=== PATIENT | male | born 1955 ===

== ENCOUNTER 2018-01-04 11:49 | Emergency (ER) | payer OTHER ==
[2018-01-04 11:54] VITALS: RESP 18
[2018-01-04] MEDS ORDERED: Bacitracin 500 Units/gm Oint Foilpak UD TOP STA (12:24)
[2018-01-04] MEDS ORDERED: Tdap Vaccine 0.5 ml Vial (10-64 yrs) IM ONE ×2 (12:24→12:30)
[2018-01-04] MEDS ORDERED: Lidocaine 1% Inj (20ml) IJ ONE (12:24)
[2018-01-04] MEDS ORDERED: Povidone Iodine Oint 10% Foilpak UD ONE (12:31)
[2018-01-04] MEDS ORDERED: Lidocaine 1% Inj (20ml) ONE (12:31)
--- NOTE | 2018-01-04 12:37 | ED PDOC ---
Upper Extremity Pain/Injury Time Seen by Provider: 01/04/18 12:13 Chief Complaint (Nursing): Upper Extremity Problem/Injury Chief Complaint (Provider): Upper Extremity Problem/Injury History Per: Patient History/Exam Limitations: no limitations Onset/Duration Of Symptoms: Days (3) Additional Complaint(s): Patient is a 62 y/o male with no significant medical history who presents to ED for evaluation of right 3rd digit pain and swelling, onset x3 days ago. Patient reports symptoms started after sustaining a little cut while at work and has progressively worsened. Patient has been taking ibuprofen for pain but denies taking any medication today. Patient is right hand dominant. Denies fever, chills, or drainage from wound. PMD: None Past Medical History Reviewed: Historical Data, Nursing Documentation, Vital Signs Vital Signs: Last Vital Signs Temp 97.4 F L 01/04/18 12:01 Pulse 62 01/04/18 12:01 Resp 18 01/04/18 12:01 BP 112/68 01/04/18 12:01 Pulse Ox 99 01/04/18 12:01 - Medical History PMH: No Chronic Diseases - Surgical History Surgical History: No Surg Hx - Family History Family History: States: Unknown Family Hx - Immunization History Hx Tetanus Toxoid Vaccination: No (cannot recall last tetanus) - Home Medications Home Medications: Ambulatory Orders Medication Instructions Recorded Polyethylene Glycol 3350 [Miralax] 17 gm PO DAILY PRN #100 ml 03/27/17 Tamsulosin [Flomax] 0.4 mg PO DAILY #20 cap 03/27/17 Naproxen [Naprosyn] 500 mg PO BID PRN #16 tab 04/10/17 Phenazopyridine HCl [Pyridium] 200 mg PO TID PRN #12 tablet 04/10/17 Polyethylene Glycol 3350 [Miralax] 17 gm PO DAILY PRN #10 packet 04/10/17 Sulfamethoxazole/Trimethoprim 1 tab PO BID #14 tab 04/10/17 [Bactrim DS 800 mg-160 mg] Cephalexin [Keflex] 500 mg PO TID #21 capsule 01/04/18 RX: Bacitracin Ointment 1 applic TOP BID #1 tube 01/04/18 [Bacitracin] RX: Ibuprofen [Motrin Tab] 600 mg PO Q6 PRN #20 tab 01/04/18 - Allergies Allergies/Adverse Reactions: Allergies Allergy/AdvReac Type Severity Reaction Status Date / Time No Known Allergies Allergy Verified 04/10/17 08:37 Review of Systems ROS Statement: Except As Marked, All Systems Reviewed And Found Negative Constitutional: Negative for: Fever, Chills Musculoskeletal: Positive for: Hand Pain (right 3rd digit) Physical Exam - Reviewed Nursing Documentation Reviewed: Yes Vital Signs Reviewed: Yes - Physical Exam Comments: GENERAL APPEARANCE: Patient is awake, alert, oriented x 3, in no acute distress. SKIN: Warm, dry; (-) cyanosis. NECK: Supple, FROM CHEST AND RESPIRATORY: (-) rales, (-) rhonchi, (-) wheezes; breath sounds equal bilaterally. HEART AND CARDIOVASCULAR: (-) irregularity RIGHT HAND: radial and proximal aspect of 3rd right nail margin (+)paronychia with localized tenderness, erythema and fluctuance. (-)evidence of felon (-) active pus draining, (-) bleeding; Full ROM all digits and hand/wrist; sensation and capillary refill intact. Remainder of upper extremity: (-) tenderness, full ROM. NEURO AND PSYCH: Mental status as above. Gait: steady. Speech: clear. (-) facial asymmetry - ECG O2 Sat by Pulse Oximetry: 99 (RA) Pulse Ox Interpretation: Normal Medical Decision Making Medical Decision Making: Time: 12:30 Impression: Paronychia Initial Plan: Tetanus IM Bacitracin TOP Lidocaine INJ Keflex PO 1315 Paronychia drained of purulent material by Chalino PATTERSON by I&D. See procedure note for details. 1440 Bacitracin and bandaid applied to wound s/p saline soak. NV intact after procedure. On re-evaluation, patient reports improvement of symptoms. On exam, patient remains AAOx3, in no acute distress. Lungs clear to auscultation, cardiac RRR, repeat neuro exam shows no focal findings. Educated on wound care. Lab/Diagnostic results d/w the patient in great detail. Diagnosis of paronychia, acute finger pain and swelling d/w the patient. Based on history, exam and diagnostic results, plan will be for outpatient f ollow up. Patient instructed to follow-up with pmd / referral provided / the clinic in 1- 2 days without fail. Advised to take medication as prescribed. Return to the emergency room at any time for any new or worsening symptoms. Patient states he fully agrees with and understands discharge instructions. States that he agrees with the plan and disposition. Verbalized and repeated discharge instructions and plan. I have given the patient opportunity to ask any additional questions. Scribe Attestation: Documented by Olu Denis, acting as a scribe for Dorinda Allred PA-C Provider Scribe Attestation: All medical record entries made by the Scribe were at my direction and personally dictated by me. I have reviewed the chart and agree that the record accurately reflects my personal performance of the history, physical exam, medical decision making, and the department course for this patient. I have also personally directed, reviewed, and agree with the discharge instructions and disposition. Procedures - Incision and Drainage Site: right 3rd digit- paronychia Blade Size: 15 blade I & D Procedure: betadine prep Progress: 1mL lidocaine inj to radial aspect of right 3rd nail margin. A .5cm incision made just lateral to nail margin with immediate return of purulent material. Wound evacuated of pus. Finger soaked in saline. Bacitracin and band-aid applied. Patient tolerated procedure well. Educated on wound care. Disposition - Clinical Impression Clinical Impression: Paronychia of finger of right hand - Patient ED Disposition Is Patient to be Admitted: No Counseled Patient/Family Regarding: Studies Performed, Diagnosis, Need For Followup, Rx Given - Disposition Referrals: [facility] [Outside] Disposition: Routine/Home Disposition Time: 14:45 Condition: STABLE Additional Instructions: La atencin mdica de emergencia que recibi hoy se dirigi a abel sntomas agudos. Si le recetaron algn medicamento, llnelo y tmelo segn las indicaciones. Los sntomas pueden tardar varios veronica en resolverse. Regrese al Departamento de Emergencias si abel sntomas empeoran, no mejoran o si tiene otros problemas. Comunquese con hankins mdico dentro de 2 veronica para isaías nueva evaluacin y aleta un seguimiento o llame a justin de los mdicos / clnicas a los que pruett sido referido y que figuran en el formulario de Informacin de visita al paciente que se incluye en hankins paquete de jody. Lleve con usted a hankins consulta de seguimiento toda la documentacin que recibi del jody junto con los medicamentos que est tomando. Nuestro tratamiento no puede reemplazar la atencin mdica continua por parte de un proveedor de atencin primaria (PCP) fuera del departamento de emergencias. Prescriptions: RX: Bacitracin Ointment [Bacitracin] 1 applic TOP BID #1 tube Cephalexin [Keflex] 500 mg PO TID #21 capsule RX: Ibuprofen [Motrin Tab] 600 mg PO Q6 PRN #20 tab PRN Reason: Pain, Moderate (4-7) Instructions: Paronychia, Wound Care, Wound Incision and Drainage Forms: [facility] (Colombian) Print Language: DUTCH - POA Present On Arrival: None
[2018-01-04 14:56] VITALS: BP 103/61; PULSE 54; TEMP 98
[2018-01-06 15:17] VITALS: O2SAT 99
== END 2018-01-04 14:59 | disposition home or self-care (01) ==
LOC: H.ER 11:49
DX: L03.011 Cellulitis of right finger (principal)